=== PATIENT | female | born 1955 | race Caucasian/White ===

== ENCOUNTER 2021-03-14 12:38 | Outpatient (CLI) | payer MEDICARE ==
[~2021-03-14 12:38] MED LIST: ASPI-496 PO; ATOR-2 PO; ATOR20TA PO; CARV12.52 PO; DIAZ2TAB PO; FLUO40CA2 PO; HYDROCHLOROTH12.5 MG PO; LOSA1TAB19 PO; LOSA50TA2 PO; NAPR220T77 PO; OMEP40CA8 PO; ZOLP10TA PO
== END 2021-03-14 23:59 | disposition home or self-care (01) ==
LOC: CFH 12:38
PROVIDERS: ATTEND Internal Medicine Cardiovascular Disease
DX: I08.0 Rheumatic disorders of both mitral and aortic valves (principal); R55 Syncope and collapse; I25.10 Atherosclerotic heart disease of native coronary artery without angina pectoris; E78.00 Pure hypercholesterolemia, unspecified; I10 Essential (primary) hypertension
CPT/HCPCS: 93306